=== PATIENT | female | born 1965 | race Caucasian/White ===

== ENCOUNTER 2017-02-14 07:14 | Emergency (ER) | payer MEDICAID ==
[~2017-02-14] VITALS: Ht 177.8 cm; Wt 80.0 kg
[2017-02-14 07:16] VITALS: BP 152/90
[2017-02-14] MEDS ORDERED: METH-356 PO (07:38)
[2017-02-14 08:00] LABS: PATH.CAST-FLAG NOT PRESENT; SPERM-FLAG NOT PRESENT; SRC-FLAG NOT PRESENT; XTAL-FLAG NOT PRESENT; YLC-FLAG NOT PRESENT
== END 2017-02-14 09:26 | disposition home or self-care (01) ==
LOC: ED 08:51
DX: N30.01 Acute cystitis with hematuria (principal); J01.00 Acute maxillary sinusitis, unspecified; Z90.710 Acquired absence of both cervix and uterus
CPT/HCPCS: 81001; 99283

== ENCOUNTER 2017-05-12 21:50 | Emergency (ER) | payer MEDICAID ==
[~2017-05-12] VITALS: Ht 177.8 cm; Wt 77.8 kg
[~2017-05-12 21:50] MED LIST: METH-356 PO
[2017-05-12 22:31] LABS: PATH.CAST-FLAG NOT PRESENT; SPERM-FLAG NOT PRESENT; SRC-FLAG NOT PRESENT; XTAL-FLAG NOT PRESENT; YLC-FLAG NOT PRESENT
[2017-05-12] MEDS ORDERED: CEFTRIAXONE PMX 1GM/50ML 50 ML ONE (22:48)
[2017-05-12 22:50] LABS: BLOOD UREA NITROGEN 17 mg/dL (7-18)
[2017-05-12] MEDS ORDERED: CEFTRIAXONE PMX 1GM/50ML 50 ML IV ONE (23:00)
[2017-05-12] MEDS ORDERED: SODIUM CHLORIDE FLUSH 10ML SYR IVF ONE (23:00)
[2017-05-12] MEDS ORDERED: SODIUM CHLORIDE 0.9% 1,000ML IVBOLUS ONE (23:00)
[2017-05-12 23:08] LABS: DIFF TOTAL CELLS COUNTED 100 CELL DIFF
[2017-05-12 23:12] VITALS: BP 126/78
[2017-05-12 23:12] LABS: VERIFY COUNTS? YES
[2017-05-12 23:13] LABS: ANISOCYTOSIS 1+; POLYCHROMASIA 1+
== END 2017-05-13 00:05 | disposition home or self-care (01) ==
LOC: ED 23:37
DX: N30.01 Acute cystitis with hematuria (principal); Z90.710 Acquired absence of both cervix and uterus; Z88.0 Allergy status to penicillin
CPT/HCPCS: 36415; 76770; 80048; 81001; 82040; 85025; 87077; 87086; 96365; 99285; J0696; J7030; 87186

== ENCOUNTER 2017-09-14 09:04 | Emergency (ER) | payer MEDICAID ==
[~2017-09-14] VITALS: Ht 177.8 cm; Wt 78.9 kg
[2017-09-14 09:14] VITALS: BP 125/80
== END 2017-09-14 10:01 | disposition home or self-care (01) ==
LOC: ED 10:00
DX: J01.10 Acute frontal sinusitis, unspecified (principal); M16.11 Unilateral primary osteoarthritis, right hip; G89.29 Other chronic pain; M25.551 Pain in right hip; F32.9 Major depressive disorder, single episode, unspecified; F17.200 Nicotine dependence, unspecified, uncomplicated; Z90.710 Acquired absence of both cervix and uterus
CPT/HCPCS: 99283

== ENCOUNTER 2017-11-08 23:08 | Emergency (ER) | payer MEDICAID ==
[~2017-11-08] VITALS: Ht 177.8 cm; Wt 79.0 kg
[2017-11-08 23:13] VITALS: BP 154/98
[2017-11-09] MEDS ORDERED: KETOROLAC 30 MG/1 ML ONE (00:08)
[2017-11-09] MEDS ORDERED: KETOROLAC 30 MG/1 ML IM ONE (00:30)
== END 2017-11-09 01:27 | disposition home or self-care (01) ==
LOC: ED 23:43
DX: J32.1 Chronic frontal sinusitis (principal); M16.12 Unilateral primary osteoarthritis, left hip; F43.10 Post-traumatic stress disorder, unspecified
CPT/HCPCS: 72110; 73502; 96372; 99284; J1885

== ENCOUNTER 2017-11-12 01:13 | Inpatient (IN) | payer MEDICAID ==
[~2017-11-12] VITALS: Ht 177.8 cm; Wt 80.0 kg
[2017-11-12] MEDS ORDERED: IBUP200C5 PO (01:38)
[2017-11-12] MEDS ORDERED: ACET325T14 PO (01:38)
[2017-11-12] MEDS ORDERED: METOCLOPRAMIDE 5 MG/ML, 2ML ONE (01:49)
[2017-11-12] MEDS ORDERED: METOCLOPRAMIDE 5 MG/ML, 2ML IM ONE (02:00)
[2017-11-12] MEDS ORDERED: SODIUM CHLORIDE FLUSH 10ML SYR IVF ONE (04:30)
[2017-11-12] MEDS ORDERED: ERTAPENEM 1 GM in SODIUM CHLORIDE 0.9% 50 ML IV ONE (04:30)
[2017-11-12] MEDS ORDERED: VANCOMYCIN PER PHARMACY IV ONE (04:30)
[2017-11-12] MEDS ORDERED: SODIUM CHLORIDE 0.9% 1,000ML IVBOLUS ONE (04:30)
[2017-11-12 04:54] LABS: BASOPHILS # (AUTO) 0.03 x10^3/uL (0-0.1); BASOPHILS % (AUTO) 0 % (0-1); EOSINOPHILS # (AUTO) 0.07 x10^3/uL (0-0.4); EOSINOPHILS % (AUTO) 1 % (1-7); LYMPHOCYTES % (AUTO) 24 % (22-44); MD NO; MEAN CORPUSCULAR HEMOGLOBIN 30.8 pg (27.0-34.8); MEAN CORPUSCULAR HGB CONC 33.1 g/dL (32.4-35.8); MEAN PLATELET VOLUME 8.5 fL (7.4-10.4); MONOCYTES # (AUTO) 0.76 x10^3/uL (0.2-0.8); MONOCYTES % (AUTO) 10 % (2-9); NEUTROPHILS # (AUTO) 5.01 x10^3/uL (1.8-6.8); NEUTROPHILS % (AUTO) 65 % (42-75); PLATELET COUNT 249 x10^3/uL (130-400); RED BLOOD COUNT 4.56 x10^6/uL (3.82-5.3); RED CELL DISTRIBUTION WIDTH 13.6 % (9.6-15.2)
[2017-11-12] MEDS ORDERED: SODIUM CHLORIDE 0.9% 1,000 ML IV SCH (04:54)
[2017-11-12] MEDS ORDERED: hydrALAzine 20 MG/ML, 1ML IVPush PRN (05:00)
[2017-11-12] MEDS ORDERED: ENALAPRILAT 1.25 MG/ML, 2ML IVPush PRN (05:00)
[2017-11-12] MEDS ORDERED: POLYETHYLENE GLYCOL 17 GM PACKET PO PRN (05:00)
[2017-11-12] MEDS ORDERED: VANCOMYCIN 1,600 MG in SODIUM CHLORIDE 0.9% 250 ML IV ONE (05:00)
[2017-11-12] MEDS ORDERED: ACETAMINOPHEN 325 MG TABLET PO PRN ×2 (05:00→11:30)
[2017-11-12] MEDS ORDERED: BISACODYL 10 MG SUPP PR PRN (05:00)
[2017-11-12] MEDS ORDERED: ONDANSETRON 2MG/ML, 2ML IVPush PRN ×2 (05:00→11:30)
[2017-11-12 05:05] LABS: ALANINE AMINOTRANSFERASE 25 U/L (12-78); ALBUMIN 3.5 g/dL (3.4-5.0); ANION GAP 6 mmol/L (5-15); CALCIUM 8.9 mg/dL (8.5-10.1); CHLORIDE 112 mmol/L (98-107); CREATININE 0.58 mg/dL (0.55-1.02)
[2017-11-12 05:07] LABS: ALKALINE PHOSPHATASE 111 U/L (45-117); BILIRUBIN,TOTAL 0.6 mg/dL (0.2-1.0); TOTAL PROTEIN 7.9 g/dL (6.4-8.2)
[2017-11-12 05:29] LABS: HEMOGLOBIN A1C 5.6 % (4.2-6.3)
[2017-11-12 05:30] LABS: C-REACTIVE PROTEIN, QUANT 2.2 mg/dL (0.02-0.49); THYROID STIMULATING HORMONE 1.1 mIU/L (0.358-3.740)
[2017-11-12] MEDS ORDERED: VANCOMYCIN PER PHARMACY MC PRN (05:30)
[2017-11-12] MEDS ORDERED: OXYMETAZOLINE NASAL SPRAY 0.05%, 15ML NAS SCH (05:30)
[2017-11-12 05:58] LABS: HCT (SEDRATE) 42.5 % (34.6-47.8)
[2017-11-12] MEDS: NICOTINE 7 MG/24 HR PATCH.TD24 TD SCH (06:43)
[2017-11-12] MEDS: morphine SULFATE 10 MG/ML, 1ML IVPush PRN ×4 (06:48→21:35)
[2017-11-12] MEDS ORDERED: PHARMACOKINETIC MONITORING MC PRN (07:00)
[2017-11-12 07:17] VITALS: BP 137/82
[2017-11-12] MEDS: SENNA/DOCUSATE TABLET PO SCH (09:00)
[2017-11-12] MEDS ORDERED: GADOBUTROL 10 MMOL/10 ML VIAL ONE (09:09)
[2017-11-12] MEDS ORDERED: OXYMETAZOLINE NASAL SPRAY 0.05%, 15ML ONE (11:04)
[2017-11-12] MEDS ORDERED: EPINEPHRINE 1 MG/ML, 1ML ONE (11:04)
[2017-11-12] MEDS ORDERED: EPINEPHRINE TOPICAL SOLN 1 MG/ML, 30ML ONE (11:04)
[2017-11-12] MEDS ORDERED: BACITRACIN OINT 500U/GM, 15 GM ONE (11:04)
[2017-11-12] MEDS ORDERED: FLUORESCEIN OPHTHALMIC 1 MG STRIP ONE (11:04)
[2017-11-12] MEDS ORDERED: LIDOCAINE/PF 1%-EPI 1:200K, 30 ML ONE (11:04)
[2017-11-12] MEDS ORDERED: MIDAZOLAM 1 MG/ML, 2ML ONE (11:06)
[2017-11-12] MEDS ORDERED: FENTANYL PF 250 MCG/5ML ONE ×2 (11:06→11:55)
[2017-11-12] MEDS ORDERED: PROPOFOL 10 MG/ML, 20ML ONE (11:07)
[2017-11-12] MEDS ORDERED: GLYCOPYRROLATE 0.4 MG/2 ML, 2ML ONE (11:08)
[2017-11-12] MEDS ORDERED: ROCURONIUM 10 MG/ML,10ML ONE (11:08)
[2017-11-12] MEDS ORDERED: NEOSTIGMINE 1 MG/ML, 10ML ONE (11:08)
[2017-11-12] MEDS ORDERED: DEXAMETHASONE 4 MG/ML, 1ML ONE ×2 (11:09)
[2017-11-12] MEDS ORDERED: ONDANSETRON 2MG/ML, 2ML ONE (11:09)
[2017-11-12] MEDS ORDERED: PROMETHAZINE 25 MG/ML, 1ML IV PRN (11:30)
[2017-11-12] MEDS ORDERED: OXYcodone 5 MG/5 ML ORAL.SOL UDC PO PRN (11:30)
[2017-11-12] MEDS ORDERED: MEPERIDINE/PF 25MG/0.5ML IVPush PRN (11:30)
[2017-11-12] MEDS ORDERED: LABETALOL 5MG/ML, 20ML IV PRN (11:30)
[2017-11-12] MEDS ORDERED: hydrALAzine 20 MG/ML, 1ML IV PRN (11:30)
[2017-11-12] MEDS ORDERED: FENTANYL PF 100 MCG/2ML ONE (14:01)
[2017-11-12] MEDS: FENTANYL PF 100 MCG/2ML IV PRN ×2 (14:04→14:18)
[2017-11-12] MEDS ORDERED: ACETAMINOPHEN 650 MG/20.3 ML UDC ONE (14:10)
[2017-11-12] MEDS ORDERED: OXYcodone 5 MG/5 ML ORAL.SOL UDC ONE (14:10)
[2017-11-12] MEDS ORDERED: HYDROmorphone 2 MG/ML, 1ML ONE (14:30)
[2017-11-12] MEDS: HYDROmorphone 1 MG/ML, 1ML IV PRN ×2 (14:32→14:53)
[2017-11-12] MEDS ORDERED: OXYcodone/APAP 5/325MG TABLET PO PRN (16:00)
[2017-11-12 18:05] LABS: MICROSCOPIC INDICATED
[2017-11-12 18:20] LABS: CULTURE INDICATED? NO
[2017-11-12] MEDS: OXYcodone IR 5MG TABLET PO PRN ×2 (18:47→23:01)
[2017-11-12] MEDS: VANCOMYCIN 1,600 MG in SODIUM CHLORIDE 0.9% 250 ML IV SCH (19:55)
[2017-11-12 20:16] VITALS: BP 131/85
[2017-11-12] MEDS ORDERED: MORPHINE SULFATE 4 MG/ML, 1ML ONE (21:31)
[2017-11-13 00:08] VITALS: BP 110/65
[2017-11-13] MEDS ORDERED: MORPHINE SULFATE 4 MG/ML, 1ML ONE ×2 (01:08→05:56)
[2017-11-13] MEDS: morphine SULFATE 10 MG/ML, 1ML IVPush PRN ×4 (01:12→20:27)
[2017-11-13] MEDS: OXYcodone IR 5MG TABLET PO PRN ×2 (03:48→07:59)
[2017-11-13 03:52] VITALS: BP 118/75
[2017-11-13] MEDS: NICOTINE 7 MG/24 HR PATCH.TD24 TD SCH (05:00)
[2017-11-13 05:16] LABS: BASOPHILS # (AUTO) 0.03 x10^3/uL (0-0.1); BASOPHILS % (AUTO) 0 % (0-1); EOSINOPHILS # (AUTO) 0.01 x10^3/uL (0-0.4); EOSINOPHILS % (AUTO) 0 % (1-7); LYMPHOCYTES # (AUTO) 1.76 x10^3/uL (1-3.4); LYMPHOCYTES % (AUTO) 21 % (22-44); MD NO; MEAN CORPUSCULAR HEMOGLOBIN 30.8 pg (27.0-34.8); MEAN CORPUSCULAR HGB CONC 33.1 g/dL (32.4-35.8); MEAN CORPUSCULAR VOLUME 93.3 fL (80-100); MEAN PLATELET VOLUME 8.8 fL (7.4-10.4); MONOCYTES # (AUTO) 0.76 x10^3/uL (0.2-0.8); MONOCYTES % (AUTO) 9 % (2-9); NEUTROPHILS # (AUTO) 5.92 x10^3/uL (1.8-6.8); NEUTROPHILS % (AUTO) 70 % (42-75); PLATELET COUNT 245 x10^3/uL (130-400); RED BLOOD COUNT 3.96 x10^6/uL (3.82-5.3); RED CELL DISTRIBUTION WIDTH 13.7 % (9.6-15.2)
[2017-11-13 05:50] LABS: CALCIUM 8.9 mg/dL (8.5-10.1); CHOL/HDL RATIO 2.6; CHOLESTEROL, TOTAL 166 mg/dL (140-239); CREATININE 0.67 mg/dL (0.55-1.02); HDL CHOL % 39 % (28-40); HDL CHOLESTEROL (DIRECT) 65 mg/dL (40-60); LDL CHOLESTEROL,CALCULATED 86 mg/dL (54-169); LDL/HDL RATIO 1.3 (0.5-3.0); TRIGLYCERIDES 74 mg/dL (50-200); VLDL CHOLESTEROL 15 mg/dL (0-25)
[2017-11-13 05:54] LABS: ANION GAP 9 mmol/L (5-15); CHLORIDE 110 mmol/L (98-107)
[2017-11-13] MEDS: ERTAPENEM 1 GM in SODIUM CHLORIDE 0.9% 50 ML IV SCH (06:01)
[2017-11-13] MEDS: SENNA/DOCUSATE TABLET PO SCH (07:59)
[2017-11-13 08:00] VITALS: BP 122/73
[2017-11-13] MEDS: VANCOMYCIN 1,600 MG in SODIUM CHLORIDE 0.9% 250 ML IV SCH ×2 (08:01→20:08)
[2017-11-13] MEDS ORDERED: SODIUM CHLORIDE NASAL SPRAY 45ML BOTTLE NAS PRN (09:00)
[2017-11-13] MEDS ORDERED: OXYcodone/APAP 5/325MG TABLET ONE (12:26)
[2017-11-13] MEDS: OXYcodone/APAP 5/325MG TABLET PO PRN ×3 (12:28→22:50)
[2017-11-13 15:28] VITALS: BP 115/69
[2017-11-13 20:15] VITALS: BP 115/68
[2017-11-14 02:59] VITALS: BP 117/76
[2017-11-14] MEDS: OXYcodone/APAP 5/325MG TABLET PO PRN ×4 (03:43→20:44)
[2017-11-14] MEDS: ERTAPENEM 1 GM in SODIUM CHLORIDE 0.9% 50 ML IV SCH (06:29)
[2017-11-14] MEDS: NICOTINE 7 MG/24 HR PATCH.TD24 TD SCH (06:29)
[2017-11-14 07:10] VITALS: BP 126/82
[2017-11-14] MEDS: SENNA/DOCUSATE TABLET PO SCH (08:08)
[2017-11-14] MEDS: VANCOMYCIN 1,600 MG in SODIUM CHLORIDE 0.9% 250 ML IV SCH (08:09)
[2017-11-14 12:35] VITALS: BP 174/60
[2017-11-14] MEDS: OXYcodone IR 5MG TABLET PO PRN (12:36)
[2017-11-14] MEDS: VANCOMYCIN 1,400 MG in SODIUM CHLORIDE 0.9% 250 ML IV SCH (17:53)
[2017-11-14 20:00] VITALS: BP 127/79
[2017-11-15] MEDS: OXYcodone/APAP 5/325MG TABLET PO PRN ×4 (00:38→13:31)
[2017-11-15 02:00] VITALS: BP 133/82
[2017-11-15] MEDS: NICOTINE 7 MG/24 HR PATCH.TD24 TD SCH (04:45)
[2017-11-15] MEDS: ERTAPENEM 1 GM in SODIUM CHLORIDE 0.9% 50 ML IV SCH (05:02)
[2017-11-15] MEDS: VANCOMYCIN 1,400 MG in SODIUM CHLORIDE 0.9% 250 ML IV SCH (06:01)
[2017-11-15] MEDS ORDERED: PNEUMOCOCCAL 23 VACCINE IM-VACC ONE (07:00)
[2017-11-15] MEDS ORDERED: FLU VACC QS2017-18 (36MOS+) UP/PF 0.5 ML IM-VACC ONE (07:00)
[2017-11-15 07:50] VITALS: BP 134/89
[2017-11-15] MEDS: SENNA/DOCUSATE TABLET PO SCH (10:14)
[2017-11-15 14:00] VITALS: BP 133/86
[2017-11-15] MEDS ORDERED: IBUP-1484 PO (14:37)
[2017-11-15] MEDS ORDERED: OXYM15SP8 NAS (14:37)
[2017-11-15] MEDS ORDERED: LINE600T37 PO (14:37)
[2017-11-15] MEDS ORDERED: OMEP20TA62 PO (14:37)
[2017-11-15] MEDS ORDERED: ACET325T14 PO (14:37)
[2017-11-15] MEDS ORDERED: NICO-485 TD (15:20)
== END 2017-11-15 15:40 | disposition home or self-care (01) | DRG 135 ==
LOC: ED 01:21 → EDIP 05:11 → 3NE 06:22 → 4NOR 12:32 → ORIP 15:00 → 4NOR 15:38 → DCLOUNGE 11-15 15:28
PROVIDERS: ADMIT Internal Medicine; ATTEND Internal Medicine
PROC: 09TV8ZZ Resection of Left Ethmoid Sinus, Via Natural or Artificial Opening Endoscopic (ICD-10-PCS; 2017-11-12)
PROC: 09TU8ZZ Resection of Right Ethmoid Sinus, Via Natural or Artificial Opening Endoscopic (ICD-10-PCS; 2017-11-12)
PROC: 099R8ZZ Drainage of Left Maxillary Sinus, Via Natural or Artificial Opening Endoscopic (ICD-10-PCS; 2017-11-12)
PROC: 099Q8ZZ Drainage of Right Maxillary Sinus, Via Natural or Artificial Opening Endoscopic (ICD-10-PCS; 2017-11-12)
PROC: 02HV33Z Insertion of Infusion Device into Superior Vena Cava, Percutaneous Approach (ICD-10-PCS; 2017-11-14)
PROC: B548ZZA Ultrasonography of Superior Vena Cava, Guidance (ICD-10-PCS; 2017-11-14)
PROC: 3E0234Z Introduction of Serum, Toxoid and Vaccine into Muscle, Percutaneous Approach (ICD-10-PCS; principal; 2017-11-15)
PROC: 3E0234Z Introduction of Serum, Toxoid and Vaccine into Muscle, Percutaneous Approach (ICD-10-PCS; 2017-11-15)
DX: J01.90 Acute sinusitis, unspecified (principal); M86.8X8 Other osteomyelitis, other site; M41.9 Scoliosis, unspecified; F41.1 Generalized anxiety disorder; J32.0 Chronic maxillary sinusitis; J34.89 Other specified disorders of nose and nasal sinuses; M16.10 Unilateral primary osteoarthritis, unspecified hip; F43.10 Post-traumatic stress disorder, unspecified; F32.9 Major depressive disorder, single episode, unspecified; F17.210 Nicotine dependence, cigarettes, uncomplicated; F12.10 Cannabis abuse, uncomplicated; B19.20 Unspecified viral hepatitis C without hepatic coma; M85.88 Other specified disorders of bone density and structure, other site; Z80.3 Family history of malignant neoplasm of breast; Z80.8 Family history of malignant neoplasm of other organs or systems; Z23 Encounter for immunization; Z90.710 Acquired absence of both cervix and uterus; Z88.0 Allergy status to penicillin
CPT/HCPCS: 36415; 36569; 70486; 70546; 70553; 76937; 77001; 80048; 80053; 80061; 80202; 81001; 83036; 83735; 84439; 84443; 85025; 85651; 86140; 87040; 87070; 87075; 87077; 87186; 87205; 88304; 88311; 90686; 90732; 96372; 96374; A9585; J0171; J1100; J1170; J1335; J2250; J2405; J2704; J2710; J3010; J3370; J3490; C1751; J2270; J2765; J7030; J7050

== ENCOUNTER 2017-11-18 22:51 | Inpatient (IN) | payer MEDICAID ==
[~2017-11-18] VITALS: Ht 177.8 cm; Wt 78.4 kg
[~2017-11-18 22:51] MED LIST changes: +ACET325T14 PO; +IBUP-1484 PO; +IBUP200C5 PO; +LINE600T37 PO; +NICO-485 TD; +OMEP20TA62 PO; +OXYM15SP8 NAS
[2017-11-18] MEDS ORDERED: SODIUM CHLORIDE FLUSH 10ML SYR IVF ONE (23:30)
[2017-11-18 23:42] LABS: BASOPHILS # (AUTO) 0.04 x10^3/uL (0-0.1); BASOPHILS % (AUTO) 1 % (0-1); EOSINOPHILS # (AUTO) 0.21 x10^3/uL (0-0.4); EOSINOPHILS % (AUTO) 3 % (1-7); LYMPHOCYTES # (AUTO) 2.45 x10^3/uL (1-3.4); LYMPHOCYTES % (AUTO) 29 % (22-44); MD NO; MEAN CORPUSCULAR HEMOGLOBIN 30.6 pg (27.0-34.8); MEAN CORPUSCULAR HGB CONC 33.1 g/dL (32.4-35.8); MEAN CORPUSCULAR VOLUME 92.6 fL (80-100); MEAN PLATELET VOLUME 8.3 fL (7.4-10.4); MONOCYTES # (AUTO) 0.82 x10^3/uL (0.2-0.8); MONOCYTES % (AUTO) 10 % (2-9); NEUTROPHILS # (AUTO) 5.08 x10^3/uL (1.8-6.8); NEUTROPHILS % (AUTO) 59 % (42-75); PLATELET COUNT 292 x10^3/uL (130-400); RED BLOOD COUNT 4.11 x10^6/uL (3.82-5.3); RED CELL DISTRIBUTION WIDTH 13.3 % (9.6-15.2)
[2017-11-18 23:49] LABS: ALANINE AMINOTRANSFERASE 19 U/L (12-78); ALBUMIN 3.3 g/dL (3.4-5.0); ANION GAP 10 mmol/L (5-15); CALCIUM 8.6 mg/dL (8.5-10.1); CHLORIDE 110 mmol/L (98-107); CREATININE 0.57 mg/dL (0.55-1.02)
[2017-11-18 23:52] LABS: ALKALINE PHOSPHATASE 104 U/L (45-117); BILIRUBIN,TOTAL 0.2 mg/dL (0.2-1.0); TOTAL PROTEIN 7.7 g/dL (6.4-8.2)
[2017-11-19] MEDS ORDERED: ENOXAPARIN 40 MG/0.4 ML SQ SCH (00:30)
[2017-11-19] MEDS ORDERED: TEMAZEPAM 15 MG CAPSULE PO PRN (00:30)
[2017-11-19] MEDS ORDERED: ACETAMINOPHEN 325 MG TABLET PO PRN (00:30)
[2017-11-19] MEDS ORDERED: SODIUM CHLORIDE FLUSH 10ML SYR IVF PRN (00:30)
[2017-11-19] MEDS ORDERED: NICOTINE 14MG/24 HR PATCH.TD24 TD SCH (00:30)
[2017-11-19] MEDS ORDERED: ENALAPRILAT 1.25 MG/ML, 2ML IVPush PRN (00:30)
[2017-11-19] MEDS ORDERED: IBUPROFEN 200 MG TABLET PO PRN (00:30)
[2017-11-19] MEDS ORDERED: ONDANSETRON ODT 4 MG PO PRN (00:30)
[2017-11-19] MEDS ORDERED: DOCUSATE 100 MG CAPSULE PO PRN (00:30)
[2017-11-19 01:23] VITALS: BP 114/74
[2017-11-19] MEDS: LINEZOLID PMX 600MG/300ML 300 ML IV SCH ×2 (01:57→12:41)
[2017-11-19 02:59] VITALS: BP 115/71
[2017-11-19 08:16] VITALS: BP 118/74
[2017-11-19] MEDS ORDERED: OMEPRAZOLE 20 MG CAPSULE.DR PO SCH (09:00)
[2017-11-19] MEDS ORDERED: ACET325T14 PO (11:58)
[2017-11-19] MEDS ORDERED: PANT40TA3 PO (11:58)
[2017-11-19] MEDS ORDERED: LINE600T37 PO (11:58)
[2017-11-19] MEDS ORDERED: NICO-486 TD (11:58)
[2017-11-19] MEDS ORDERED: FLUCONAZOLE 100 MG TABLET PO ONE (12:00)
== END 2017-11-19 13:40 | disposition home or self-care (01) | DRG 392 ==
LOC: ED 23:09 → EDIP 11-19 00:08 → 3NW 11-19 00:57 → DCLOUNGE 11-19 13:33
PROVIDERS: ADMIT Family Medicine; ATTEND Family Medicine
DX: K30 Functional dyspepsia (principal); M86.18 Other acute osteomyelitis, other site; F12.90 Cannabis use, unspecified, uncomplicated; F17.211 Nicotine dependence, cigarettes, in remission; J44.9 Chronic obstructive pulmonary disease, unspecified; Z90.710 Acquired absence of both cervix and uterus; Z80.8 Family history of malignant neoplasm of other organs or systems; Z80.3 Family history of malignant neoplasm of breast; Z79.899 Other long term (current) drug therapy; Z79.1 Long term (current) use of non-steroidal anti-inflammatories (NSAID); Z79.2 Long term (current) use of antibiotics; Z88.0 Allergy status to penicillin
CPT/HCPCS: 36415; 71045; 80053; 83605; 85025; 99285; J2020

== ENCOUNTER 2018-11-23 18:30 | Emergency (ER) | payer MEDICAID ==
[~2018-11-23] VITALS: Ht 177.8 cm; Wt 69.9 kg
[~2018-11-23 18:30] MED LIST changes: +IBUP-1623 PO; -IBUP200C5 PO; -METH-356 PO; +METH10TA2 PO; +NICO-486 TD; +PANT40TA3 PO
[2018-11-23 18:42] VITALS: BP 138/87
--- NOTE | 2018-11-23 19:02 | NUR ---
PA TO BEDSIDE
== END 2018-11-23 19:21 | disposition home or self-care (01) ==
LOC: ED 19:00
DX: J01.10 Acute frontal sinusitis, unspecified (principal); M19.90 Unspecified osteoarthritis, unspecified site; F41.1 Generalized anxiety disorder; F32.9 Major depressive disorder, single episode, unspecified; F43.10 Post-traumatic stress disorder, unspecified; Z90.710 Acquired absence of both cervix and uterus
CPT/HCPCS: 99283

== ENCOUNTER 2019-02-03 12:33 | Emergency (ER) | payer MEDICAID ==
[~2019-02-03] VITALS: Ht 177.8 cm; Wt 71.6 kg
[2019-02-03 12:36] VITALS: BP 125/82
--- NOTE | 2019-02-03 13:11 | NUR ---
RIGHT HIP PAIN THAT PT ATTRIBUTES TO OSTEOARTHRITIS. TO XRAY VIA SENA
--- NOTE | 2019-02-03 14:45 | NUR ---
PT RESTING ON LEFT SIDE, NO DISTRESS
--- NOTE | 2019-02-03 15:02 | NUR ---
PT REQUESTING CANE. PER [facility] OKAY TO GIVE. PT USING CANE TO WALK TO DISCHARGE DESK. PT STATES IT IS HELPING HER NOT TO BEAR WEIGHT ON RIGHT HIP. AMBULATED WITHOUT ASSISTANCE.
== END 2019-02-03 15:05 | disposition home or self-care (01) ==
LOC: ED 14:59
DX: J01.10 Acute frontal sinusitis, unspecified (principal); M16.11 Unilateral primary osteoarthritis, right hip; G89.29 Other chronic pain; F17.200 Nicotine dependence, unspecified, uncomplicated; Z90.710 Acquired absence of both cervix and uterus; F32.9 Major depressive disorder, single episode, unspecified; F43.10 Post-traumatic stress disorder, unspecified
CPT/HCPCS: 70450; 99284